=== PATIENT | female | born 1990 | race Caucasian/White ===

== ENCOUNTER 2016-08-07 13:59 | Emergency (ER) | payer OTHER ==
--- NOTE | 2016-08-07 14:26 | REP ---
Clinical: Trauma. Technique: AP, lateral, bilateral oblique views left wrist . Findings: The carpal bones, surrounding osseous structures, soft tissues, and joint spaces are normal. There is no evidence for acute fracture or dislocation. No subcutaneous emphysema or radiodense foreign body. Impression: Normal wrist series. No acute fracture or dislocation Signed by Yonathan Hutchins MD 08/07/2016 02:18 P
--- NOTE | 2016-08-07 15:34 | EDDOCDS ---
Physician Documentation [facility] Name: Talisha Bah Age: 25 yrs Sex: Female : 1990 Arrival Date: 08/07/2016 Time: 13:59 Bed PR Private MD: NO PRIMARY PHYSICIAN, .; [place] [facility] [place]position: 08/07/16 15:25 Discharged to Home/Self Care. Impression: Pain in left wrist. - Condition is Stable. - Discharge Instructions: Wrist Splint, Rwbq-vh-Yuvu, Wrist Pain, Wssr-cj-Axuh. - Medication Reconciliation, Local Pharmacy Hours form. - Follow up: Zac Tan [facility]; When: 2 - 3 days; Reason: Further diagnostic work-up, Recheck today's complaints, Continuance of care. - Problem is new. - Symptoms are unchanged. Historical: - Allergies: no known allergies; - Home Meds: 1. Wellbutrin 150 mg' Oral daily - PMHx: Depression; - PSHx: none; - Social history: Smoking status: Patient states was never smoker of tobacco. No barriers to communication noted, The patient speaks fluent Togolese, Speaks appropriately for age. - Family history: Not pertinent. - : The pt / caregiver states he / she is not on anticoagulants. Home medication list is obtained from the patient. - Exposure Risk Screening:: None identified. 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 6 in. (167.64 cm) (R); Pain 6/10; 15:31 BP 133 / 72; Pulse 73; Resp 16; Temp 98.7(O); Pulse Ox 95% on R/A; Pain 6/10; kr3 14:01 Body Mass Index 24.69 (69.40 kg, 167.64 cm) lr2 MDM: 14:07 Wrist, Complete Ordered. EDMS 15:25 Splint Affected Extremity ordered. btw 15:29 Financial registration complete. gjb Signatures: Dispatcher MedHost EDMS Dilcia Anne RN RN Courtney Leonard,RN RN kr3 Brad Fan PA PA btw Beck, Gabriela gjb MTDD
--- NOTE | 2016-08-07 15:34 | EDDOCDS ---
Nurse's Notes [facility] Name: Talisha Bah Age: 25 yrs Sex: Female : 1990 Arrival Date: 08/07/2016 Time: 13:59 Bed PR Private MD: NO PRIMARY PHYSICIAN, .; GÓMEZ Alicea Diagnosis: Pain in left wrist Presentation: 08/07 14:04 Presenting complaint: Patient states: fell last night on ice injuring left wrist. moves srm fingers well. Adult Sepsis Screening: The patient does not have new or worsening altered mentation. Patient's respiratory rate is less than 22. Systolic blood pressure is greater than 100. Patient has a qSOFA score of 0- Negative Sepsis Screen. Suicide/Homicide risk assessment- the patient denies having any suicidal and/or homicidal ideations and does not present with any other emotional, behavioral or mental health complaints. 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 Transition of care: patient was not received from another setting of care. 14:04 Acuity: LEVI Level 4 [facility] 14:04 Method Of Arrival: Walkin/Carried/Asstd [facility] Triage Assessment: 14:06 General: Appears in no apparent distress, Behavior is appropriate for age, cooperative. srm Pain: Pain currently is 6 out of 10 on a pain scale. At worst was 10 out of 10 on a pain scale. Musculoskeletal: Circulation, motion, and sensation intact Capillary refill < 3 seconds in left fingers. 14:06 Pt Declines HIV testing. 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 Wellbutrin 150 mg' Oral daily - PMHx: Depression; - PSHx: none; - Social history: Smoking status: Patient states was never smoker of tobacco. No barriers to communication noted, The patient speaks fluent Taiwanese, Speaks appropriately for age. - Family history: Not pertinent. - : The pt / caregiver states he / she is not on anticoagulants. Home medication list is obtained from the patient. - Exposure Risk Screening:: None identified. Screenin:31 Screening information is obtained from the patient. Fall risk: No risks identified. kr3 Assistance ADL's: requires no assistance with activities of daily living. Abuse/DV Screen: The patient / caregiver reports he/she is: not in a situation that causes fear, pain or injury. Nutritional screening: No deficits noted. Advance Directives: Currently, there is no health care proxy. home support is adequate. Assessment: 15:32 General: Appears in no apparent distress, comfortable, Behavior is cooperative. Pain: nela Complains of pain in left wrist. Skin warm and dry. Moves all extremities. Respirations unlabored. No apparent distress. Physical assessment to be completed by PA/EDMD. 15:33 Musculoskeletal: Circulation, motion, and sensation intact Range of motion intact in kr3 all extremities. Vital Signs: 14:01 BP 143 / 70; Pulse 101; Resp 17; Temp 96.9(T); Pulse Ox 100% on R/A; Weight 69.4 kg lr2 (R); Height 5 ft. 6 in. (167.64 cm) (R); Pain 6/10; 15:31 BP 133 / 72; Pulse 73; Resp 16; Temp 98.7(O); Pulse Ox 95% on R/A; Pain 6/10; kr3 14:01 Body Mass Index 24.69 (69.40 kg, 167.64 cm) lr2 Vitals: 14:01 Log In Time: August 07, 2016 at 13:59. lr2 ED Course: 14:00 Patient visited by Stephanie Ann. lr2 14:00 Patient moved to Waiting lr2 14:02 NO PRIMARY PHYSICIAN, . is Private Physician. lr2 14:02 [place] [facility] [place] Private Physician. lr2 14:02 Patient moved to Pre RCE lr2 14:05 Triage Initiated srm 14:58 Wrist, Complete Returned. EDMS 15:16 Patient moved to PR ct3 15:19 Brad Fan PA is PHCP. btw 15:19 Carolyn Elam MD is Attending Physician. btw 15:19 Patient visited by Brad Fan PA. btw 15:25 Zac Tan [facility] is Referral Physician. btw 15:30 Velcro wrist splint applied to left wrist. ct3 15:31 Patient visited by Katie Hickey PCA. ct3 15:32 The patient / caregiver is instructed regarding the plan of care and ED course. Patient nela has correct armband on for positive identification. 15:33 No IV's were initiated during this patient's visit. No procedures done that require kr3 assistance. Velcro wrist splint applied to left wrist. Patient with positive distal sensation and brisk distal capillary refill after application. Order Results: Radiology Order: Wrist, Complete Test: Wrist, Complete REASON FOR EXAMINATION: Trauma; Clinical: Trauma.; ; Technique: AP, lateral, bilateral oblique views left wrist .; ; Findings: The carpal bones, surrounding osseous structures, soft tissues, and; joint spaces are normal. There is no evidence for acute fracture or dislocation.; No subcutaneous emphysema or radiodense foreign body.; ; Impression:; Normal wrist series. No acute fracture or dislocation; ; ; Signed by; Yonathan Hutchins MD 08/07/2016 02:18 P; Outcome: 15:25 Discharge ordered by Provider. btw 15:32 Discharge Assessment: patient administered narcotics - no. The following High Risk kr3 Discharge criteria are identified: None. Discharged to home ambulatory. Condition: stable. Discharge instructions given to patient, Instructed on discharge instructions, follow up and referral plans. Demonstrated understanding of instructions, Pt was receptive of discharge instructions/ teaching. No special radiology studies were completed. Property sent home with patient. 15:33 Patient left the ED. kr3 Signatures: Dispatcher MedHost EDMS Dilcia Anne RN Courtney Choudhury RN RN kr3 Brad Fan PA PA btw Katie Hickey, UMA PERFORATING MACHINE OPERATOR ct3 Stephanie Ann2 MTDHayde
--- NOTE | 2016-08-09 16:34 | EDDOCDS ---
Physician Documentation [facility] Name: Talisha Beltran Age: 25 yrs Sex: Female : 1990 Arrival Date: 08/07/2016 Time: 13:59 Bed PR Private MD: NO PRIMARY PHYSICIAN, .; [place] [facility] [place]: 08/07/16 15:25 Discharged to Home/Self Care. Impression: Pain in left wrist. - Condition is Stable. - Discharge Instructions: Wrist Splint, Hqzx-ax-Pxvy, Wrist Pain, Lyzh-zc-Enbz. - Medication Reconciliation, Local Pharmacy Hours form. - Follow up: Zac Tan [facility]; When: 2 - 3 days; Reason: Further diagnostic work-up, Recheck today's complaints, Continuance of care. - Problem is new. - Symptoms are unchanged. Historical: - Allergies: no known allergies; - Home Meds: 1. Wellbutrin 150 mg' Oral daily - PMHx: Depression; - PSHx: none; - Social history: Smoking status: Patient states was never smoker of tobacco. No barriers to communication noted, The patient speaks fluent Omani, Speaks appropriately for age. - Family history: Not pertinent. - : The pt / caregiver states he / she is not on anticoagulants. Home medication list is obtained from the patient. - Exposure Risk Screening:: None identified. 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 6 in. (167.64 cm) (R); Pain 6/10; 15:31 BP 133 / 72; Pulse 73; Resp 16; Temp 98.7(O); Pulse Ox 95% on R/A; Pain 6/10; kr3 14:01 Body Mass Index 24.69 (69.40 kg, 167.64 cm) lr2 MDM: 14:07 Wrist, Complete Ordered. EDMS 15:25 Splint Affected Extremity ordered. btw 15:29 Financial registration complete. gjb 15:52 [facility] Payment Agreement was scanned into [employer] and attached to record. gjb 17:35 T-Sheet-- Draft Copy was scanned into [employer] and attached to record. klr Signatures: Dispatcher MedHost EDDilcia Erwin RN RN srm Robie, Kathleen, RN RN kr3 Brad Fan PA PA btw Beck, Gabriela gjb Redder, Kathie klr The chart was reviewed and I authenticate all verbal orders and agree with the evaluation and treatment provided.Attachments: 15:52 [facility] Payment Agreement [facility] 17:35 T-Sheet-- Draft Copy klr Chart Complete MTDD
--- NOTE | 2016-08-09 16:34 | EDDOCDS ---
Nurse's Notes [facility] Name: Talisha Beltran Age: 25 yrs Sex: Female : 1990 Arrival Date: 08/07/2016 Time: 13:59 Bed PR Private MD: NO PRIMARY PHYSICIAN, .; GÓMEZ Alicea Diagnosis: Pain in left wrist Presentation: 08/07 14:04 Presenting complaint: Patient states: fell last night on ice injuring left wrist. moves srm fingers well. Adult Sepsis Screening: The patient does not have new or worsening altered mentation. Patient's respiratory rate is less than 22. Systolic blood pressure is greater than 100. Patient has a qSOFA score of 0- Negative Sepsis Screen. Suicide/Homicide risk assessment- the patient denies having any suicidal and/or homicidal ideations and does not present with any other emotional, behavioral or mental health complaints. 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 Transition of care: patient was not received from another setting of care. 14:04 Acuity: LEVI Level 4 [facility] 14:04 Method Of Arrival: Walkin/Carried/Asstd [facility] Triage Assessment: 14:06 General: Appears in no apparent distress, Behavior is appropriate for age, cooperative. srm Pain: Pain currently is 6 out of 10 on a pain scale. At worst was 10 out of 10 on a pain scale. Musculoskeletal: Circulation, motion, and sensation intact Capillary refill < 3 seconds in left fingers. 14:06 Pt Declines HIV testing. 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 Wellbutrin 150 mg' Oral daily - PMHx: Depression; - PSHx: none; - Social history: Smoking status: Patient states was never smoker of tobacco. No barriers to communication noted, The patient speaks fluent Swedish, Speaks appropriately for age. - Family history: Not pertinent. - : The pt / caregiver states he / she is not on anticoagulants. Home medication list is obtained from the patient. - Exposure Risk Screening:: None identified. Screenin:31 Screening information is obtained from the patient. Fall risk: No risks identified. kr3 Assistance ADL's: requires no assistance with activities of daily living. Abuse/DV Screen: The patient / caregiver reports he/she is: not in a situation that causes fear, pain or injury. Nutritional screening: No deficits noted. Advance Directives: Currently, there is no health care proxy. home support is adequate. Assessment: 15:32 General: Appears in no apparent distress, comfortable, Behavior is cooperative. Pain: nela Complains of pain in left wrist. Skin warm and dry. Moves all extremities. Respirations unlabored. No apparent distress. Physical assessment to be completed by PA/EDMD. 15:33 Musculoskeletal: Circulation, motion, and sensation intact Range of motion intact in kr3 all extremities. Vital Signs: 14:01 BP 143 / 70; Pulse 101; Resp 17; Temp 96.9(T); Pulse Ox 100% on R/A; Weight 69.4 kg lr2 (R); Height 5 ft. 6 in. (167.64 cm) (R); Pain 6/10; 15:31 BP 133 / 72; Pulse 73; Resp 16; Temp 98.7(O); Pulse Ox 95% on R/A; Pain 6/10; kr3 14:01 Body Mass Index 24.69 (69.40 kg, 167.64 cm) lr2 Vitals: 14:01 Log In Time: August 07, 2016 at 13:59. lr2 ED Course: 14:00 Patient visited by Stephanie Ann. lr2 14:00 Patient moved to Waiting lr2 14:02 NO PRIMARY PHYSICIAN, . is Private Physician. lr2 14:02 Nixon [facility] is Private Physician. lr2 14:02 Patient moved to Pre RCE lr2 14:05 Triage Initiated srm 14:58 Wrist, Complete Returned. EDMS 15:16 Patient moved to PR ct3 15:19 Brad Fan PA is PHCP. btw 15:19 Carolyn Elam MD is Attending Physician. btw 15:19 Patient visited by Brad Fan PA. btw 15:25 Zac Tan [facility] is Referral Physician. btw 15:30 Velcro wrist splint applied to left wrist. ct3 15:31 Patient visited by Katie Hickey PCA. ct3 15:32 The patient / caregiver is instructed regarding the plan of care and ED course. Patient nela has correct armband on for positive identification. 15:33 No IV's were initiated during this patient's visit. No procedures done that require kr3 assistance. Velcro wrist splint applied to left wrist. Patient with positive distal sensation and brisk distal capillary refill after application. 15:38 Patient name changed from Talisha\S\\S\Albidrez\S\ to Talisha\S\ \S\Albidrez. EDMS 15:52 [facility] [place] Agreement was scanned into [employer] and attached to record. gjb 16:28 Patient name changed from Talisha\S\ \S\Albidrez\S\ to Talisha\S\ \S\Ruby. EDMS 17:35 T-Sheet-- Draft Copy was scanned into [employer] and attached to record. klr Order Results: Radiology Order: Wrist, Complete Test: Wrist, Complete REASON FOR EXAMINATION: Trauma; Clinical: Trauma.; ; Technique: AP, lateral, bilateral oblique views left wrist .; ; Findings: The carpal bones, surrounding osseous structures, soft tissues, and; joint spaces are normal. There is no evidence for acute fracture or dislocation.; No subcutaneous emphysema or radiodense foreign body.; ; Impression:; Normal wrist series. No acute fracture or dislocation; ; ; Signed by; Yonathan Hutchins MD 08/07/2016 02:18 P; Outcome: 15:25 Discharge ordered by Provider. btw 15:32 Discharge Assessment: patient administered narcotics - no. The following High Risk kr3 Discharge criteria are identified: None. Discharged to home ambulatory. Condition: stable. Discharge instructions given to patient, Instructed on discharge instructions, follow up and referral plans. Demonstrated understanding of instructions, Pt was receptive of discharge instructions/ teaching. No special radiology studies were completed. Property sent home with patient. 15:33 Patient left the ED. kr3 Signatures: Dispatcher MedHost EDMS Dilcia Anne RN RN srm Robie, Kathleen, RN RN kr3 Brad Fan PA PA btw Katie Hickey, UMA FORENSIC BALLISTICS EXPERT ct3 Gwen Lara Kathie klr Ross, Laura lr2 Chart Complete MTDD
--- NOTE | 2016-08-09 16:34 | EDDOCDS ---
Physician Documentation [facility] Name: Talisha Beltran Age: 25 yrs Sex: Female : 1990 Arrival Date: 08/07/2016 Time: 13:59 Bed PR Private MD: NO PRIMARY PHYSICIAN, .; Nixon [facility] [place] Disposition: 08/07/16 15:25 Discharged to Home/Self Care. Impression: Pain in left wrist. - Condition is Stable. - Discharge Instructions: Wrist Splint, Gusu-dt-Zqcu, Wrist Pain, Lqqd-yd-Meft. - Medication Reconciliation, Local Pharmacy Hours form. - Follow up: Zac Tan [facility]; When: 2 - 3 days; Reason: Further diagnostic work-up, Recheck today's complaints, Continuance of care. - Problem is new. - Symptoms are unchanged. Historical: - Allergies: no known allergies; - Home Meds: 1. Wellbutrin 150 mg' Oral daily - PMHx: Depression; - PSHx: none; - Social history: Smoking status: Patient states was never smoker of tobacco. No barriers to communication noted, The patient speaks fluent Austrian, Speaks appropriately for age. - Family history: Not pertinent. - : The pt / caregiver states he / she is not on anticoagulants. Home medication list is obtained from the patient. - Exposure Risk Screening:: None identified. 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 6 in. (167.64 cm) (R); Pain 6/10; 15:31 BP 133 / 72; Pulse 73; Resp 16; Temp 98.7(O); Pulse Ox 95% on R/A; Pain 6/10; kr3 14:01 Body Mass Index 24.69 (69.40 kg, 167.64 cm) lr2 MDM: 14:07 Wrist, Complete Ordered. EDMS 15:25 Splint Affected Extremity ordered. btw 15:29 Financial registration complete. gjb 15:52 [facility] Payment Agreement was scanned into [employer] and attached to record. gjb 17:35 T-Sheet-- Draft Copy was scanned into [employer] and attached to record. klr Signatures: Dispatcher MedHost EDDilcia Erwin RN RN srm Robie, Kathleen, RN RN kr3 Brad Fan PA PA btw Beck, Gabriela gjb Redder, Kathie klr The chart was reviewed and I authenticate all verbal orders and agree with the evaluation and treatment provided.Attachments: 15:52 [facility] [place] Payment Agreement [facility] 17:35 T-Sheet-- Draft Copy klr Chart Complete MTDD
--- NOTE | 2016-08-16 16:39 | EDDOCDS ---
Physician Documentation [facility] Name: Talisha Beltran Age: 25 yrs Sex: Female : 1990 Arrival Date: 08/07/2016 Time: 13:59 Bed PR Private MD: NO PRIMARY PHYSICIAN, .; Nixon [facility] [place] Disposition: 08/07/16 15:25 Discharged to Home/Self Care. Impression: Pain in left wrist. - Condition is Stable. - Discharge Instructions: Wrist Splint, Knnx-uf-Ixmz, Wrist Pain, Mnic-rk-Wqja. - Medication Reconciliation, Local Pharmacy Hours form. - Follow up: Zac Tan [facility]; When: 2 - 3 days; Reason: Further diagnostic work-up, Recheck today's complaints, Continuance of care. - Problem is new. - Symptoms are unchanged. Historical: - Allergies: no known allergies; - Home Meds: 1. Wellbutrin 150 mg' Oral daily - PMHx: Depression; - PSHx: none; - Social history: Smoking status: Patient states was never smoker of tobacco. No barriers to communication noted, The patient speaks fluent Senegalese, Speaks appropriately for age. - Family history: Not pertinent. - : The pt / caregiver states he / she is not on anticoagulants. Home medication list is obtained from the patient. - Exposure Risk Screening:: None identified. 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 6 in. (167.64 cm) (R); Pain 6/10; 15:31 BP 133 / 72; Pulse 73; Resp 16; Temp 98.7(O); Pulse Ox 95% on R/A; Pain 6/10; kr3 14:01 Body Mass Index 24.69 (69.40 kg, 167.64 cm) lr2 MDM: 14:07 Wrist, Complete Ordered. EDMS 15:25 Splint Affected Extremity ordered. btw 15:29 Financial registration complete. gjb 15:52 [facility] Payment Agreement was scanned into [employer] and attached to record. gjb 17:35 T-Sheet-- Draft Copy was scanned into [employer] and attached to record. kingsley Signatures: Dispatcher MedHost EDDilcia Erwin RN RN srm Robie, Kathleen, RN RN kr3 Brad Fan PA PA btw Beck, Gabriela gjb Redder, Kathie klr The chart was reviewed and I authenticate all verbal orders and agree with the evaluation and treatment provided.Attachments: 15:52 [facility] [place] Payment Agreement cinthya Chart Complete MTDD
--- NOTE | 2016-08-16 16:39 | EDDOCDS ---
Physician Documentation [facility] Name: Talisha Beltran Age: 25 yrs Sex: Female : 1990 Arrival Date: 08/07/2016 Time: 13:59 Bed PR Private MD: NO PRIMARY PHYSICIAN, .; [place] [facility] [place]: 08/07/16 15:25 Discharged to Home/Self Care. Impression: Pain in left wrist. - Condition is Stable. - Discharge Instructions: Wrist Splint, Xxfo-ft-Npdj, Wrist Pain, Uynd-nh-Gtsi. - Medication Reconciliation, Local Pharmacy Hours form. - Follow up: Zac Tan [facility]; When: 2 - 3 days; Reason: Further diagnostic work-up, Recheck today's complaints, Continuance of care. - Problem is new. - Symptoms are unchanged. Historical: - Allergies: no known allergies; - Home Meds: 1. Wellbutrin 150 mg' Oral daily - PMHx: Depression; - PSHx: none; - Social history: Smoking status: Patient states was never smoker of tobacco. No barriers to communication noted, The patient speaks fluent Armenian, Speaks appropriately for age. - Family history: Not pertinent. - : The pt / caregiver states he / she is not on anticoagulants. Home medication list is obtained from the patient. - Exposure Risk Screening:: None identified. LOADING MANAGER: 08/07 14:06 LMP 07/17/2016 srm Vital Signs: 14:01 BP 143 / 70; Pulse 101; Resp 17; Temp 96.9(T); Pulse Ox 100% on R/A; Weight 69.4 kg / lr2 153 lbs (R); Height 5 ft. 6 in. (167.64 cm) (R); Pain 6/10; 15:31 BP 133 / 72; Pulse 73; Resp 16; Temp 98.7(O); Pulse Ox 95% on R/A; Pain 6/10; kr3 14:01 Body Mass Index 24.69 (69.40 kg, 167.64 cm) lr2 MDM: 14:07 Wrist, Complete Ordered. EDMS 15:25 Splint Affected Extremity ordered. btw 15:29 Financial registration complete. gjb 15:52 [facility] Payment Agreement was scanned into [email or web address] and attached to record. gjb 17:35 T-Sheet-- Draft Copy was scanned into [email or web address] and attached to record. kingsley Signatures: Dispatcher [employer]Host EDDilcia Erwin RN RN srm Robie, Kathleen, RN RN kr3 Brad Fan PA PA btw Beck, Gabriela gjb Redder, Kathie klr The chart was reviewed and I authenticate all verbal orders and agree with the evaluation and treatment provided.Attachments: 15:52 [place] [place] cinthya Chart Complete MTDD
--- NOTE | 2016-08-16 16:39 | EDDOCDS ---
Nurse's Notes [facility] Name: Talisha Beltran Age: 25 yrs Sex: Female : 1990 Arrival Date: 08/07/2016 Time: 13:59 Bed PR Private MD: NO PRIMARY PHYSICIAN, .; GÓMEZ [place] Diagnosis: Pain in left wrist Presentation: 08/07 14:04 Presenting complaint: Patient states: fell last night on ice injuring left wrist. moves srm fingers well. Adult Sepsis Screening: The patient does not have new or worsening altered mentation. Patient's respiratory rate is less than 22. Systolic blood pressure is greater than 100. Patient has a qSOFA score of 0- Negative Sepsis Screen. Suicide/Homicide risk assessment- the patient denies having any suicidal and/or homicidal ideations and does not present with any other emotional, behavioral or mental health complaints. 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 Transition of care: patient was not received from another setting of care. 14:04 Acuity: LEVI Level 4 [facility] 14:04 Method Of Arrival: Walkin/Carried/Asstd [facility] Triage Assessment: 14:06 General: Appears in no apparent distress, Behavior is appropriate for age, cooperative. srm Pain: Pain currently is 6 out of 10 on a pain scale. At worst was 10 out of 10 on a pain scale. Musculoskeletal: Circulation, motion, and sensation intact Capillary refill < 3 seconds in left fingers. 14:06 Pt Declines HIV testing. 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 Wellbutrin 150 mg' Oral daily - PMHx: Depression; - PSHx: none; - Social history: Smoking status: Patient states was never smoker of tobacco. No barriers to communication noted, The patient speaks fluent [place], Speaks appropriately for age. - Family history: Not pertinent. - : The pt / caregiver states he / she is not on anticoagulants. Home medication list is obtained from the patient. - Exposure Risk Screening:: None identified. Screenin:31 Screening information is obtained from the patient. Fall risk: No risks identified. kr3 Assistance ADL's: requires no assistance with activities of daily living. Abuse/DV Screen: The patient / caregiver reports he/she is: not in a situation that causes fear, pain or injury. Nutritional screening: No deficits noted. Advance Directives: Currently, there is no health care proxy. home support is adequate. Assessment: 15:32 General: Appears in no apparent distress, comfortable, Behavior is cooperative. Pain: nela Complains of pain in left wrist. Skin warm and dry. Moves all extremities. Respirations unlabored. No apparent distress. Physical assessment to be completed by PA/EDMD. 15:33 Musculoskeletal: Circulation, motion, and sensation intact Range of motion intact in kr3 all extremities. Vital Signs: 14:01 BP 143 / 70; Pulse 101; Resp 17; Temp 96.9(T); Pulse Ox 100% on R/A; Weight 69.4 kg lr2 (R); Height 5 ft. 6 in. (167.64 cm) (R); Pain 6/10; 15:31 BP 133 / 72; Pulse 73; Resp 16; Temp 98.7(O); Pulse Ox 95% on R/A; Pain 6/10; kr3 14:01 Body Mass Index 24.69 (69.40 kg, 167.64 cm) lr2 Vitals: 14:01 Log In Time: August 07, 2016 at 13:59. lr2 ED Course: 14:00 Patient visited by Stephanie Ann. lr2 14:00 Patient moved to Waiting lr2 14:02 NO PRIMARY PHYSICIAN, . is Private Physician. lr2 14:02 Nixon [facility] is Private Physician. lr2 14:02 Patient moved to Pre RCE lr2 14:05 Triage Initiated srm 14:58 Wrist, Complete Returned. EDMS 15:16 Patient moved to PR ct3 15:19 Brad Fan PA is PHCP. btw 15:19 Carolyn Elam MD is Attending Physician. btw 15:19 Patient visited by Brad Fan PA. btw 15:25 Zac Tan [facility] is Referral Physician. btw 15:30 Velcro wrist splint applied to left wrist. ct3 15:31 Patient visited by Katie Hickey PCA. ct3 15:32 The patient / caregiver is instructed regarding the plan of care and ED course. Patient nela has correct armband on for positive identification. 15:33 No IV's were initiated during this patient's visit. No procedures done that require kr3 assistance. Velcro wrist splint applied to left wrist. Patient with positive distal sensation and brisk distal capillary refill after application. 15:38 Patient name changed from Talisha\S\\S\Albidrez\S\ to Talisha\S\ \S\Albidrez. EDMS 15:52 [facility] [place] was scanned into [employer] and attached to record. gjb 16:28 Patient name changed from Talisha\S\ \S\Albidrez\S\ to Talisha\S\ \S\Ruby. EDMS 17:35 T-Sheet-- Draft Copy was scanned into [employer] and attached to record. klr Order Results: Radiology Order: Wrist, Complete Test: Wrist, Complete REASON FOR EXAMINATION: Trauma; Clinical: Trauma.; ; Technique: AP, lateral, bilateral oblique views left wrist .; ; Findings: The carpal bones, surrounding osseous structures, soft tissues, and; joint spaces are normal. There is no evidence for acute fracture or dislocation.; No subcutaneous emphysema or radiodense foreign body.; ; Impression:; Normal wrist series. No acute fracture or dislocation; ; ; Signed by; Yonathan Hutchins MD 08/07/2016 02:18 P; Outcome: 15:25 Discharge ordered by Provider. btw 15:32 Discharge Assessment: patient administered narcotics - no. The following High Risk kr3 Discharge criteria are identified: None. Discharged to home ambulatory. Condition: stable. Discharge instructions given to patient, Instructed on discharge instructions, follow up and referral plans. Demonstrated understanding of instructions, Pt was receptive of discharge instructions/ teaching. No special radiology studies were completed. Property sent home with patient. 15:33 Patient left the ED. kr3 Signatures: Dispatcher [employer] EDMS Dilcia Anne RN RN srm Robie, Kathleen, RN RN kr3 Brad Fan PA PA btw Katie Hickey, [employer] GAME ENGINEER ct3 Gwen Lara Kathie klr Ross, Laura lr2 Chart Complete MTDD
== END 2016-08-07 15:33 | disposition home or self-care (01) ==
LOC: M ED 13:59
DX: M25.532 Pain in left wrist (principal); F32.9 Major depressive disorder, single episode, unspecified; Z79.899 Other long term (current) drug therapy